=== PATIENT | female | born 1990 | race Caucasian/White ===

== ENCOUNTER 2017-11-29 10:49 | Emergency (ER) | payer OTHER ==
[~2017-11-29 10:49] MED LIST: PREN1CAP20 PO
[2017-11-29 11:15] VITALS: PULSE 132
[2017-11-29] MEDS ORDERED: ONDANSETRON HCL 4 MG/2 ML VIAL IV PUSH ONE (12:15)
[2017-11-29] MEDS ORDERED: LACTATED RINGER'S 1000 ML INJ 1,000 ML IV ONE (12:15)
--- NOTE | 2017-11-29 12:33 | PD ---
HPI Chief Complaint Nausea and Vomiting Date Seen: Nov 29, 2017 Travel History International Travel<30 Days: No Contact w/Intl Traveler<30Days: No History of Present Illness HPI Ms. Malone is a 27 y/o at 21/5 weeks gestation presenting with nausea, vomiting and diarrhea. She reports that since 0500 this morning she has had numerous episodes of nonbloody vomiting. With the vomiting she had had intractable nausea with one episode of nonbloody diarrhea. She has been unable to keep anything down since that time with either solids or liquids. She believes that this could be related to the foods she had last night as she presents with her Mother who has had the same symptoms with less severity. During the she was diagnosed with gestational diabetes at 28 weeks which she controls with her diet. She does not remember her most recent BG, but reports they have been "alright." Otherwise the has been uncomplicated. She endorses good movement with no loss of fluid, dysuria, vaginal discharge, or bleeding. Otherwise she has no complaints and denies any fevers, chills, SOB, chest pain, NVD, ABD pain, or calf tenderness. Weeks Gestation: 31 Para: 0 : 1 History Past Medical History Narrative Medical None reported Obstetric History Obstetric History -Gestational diabetes diagnosed at 28 weeks Past Surgical History Narrative Surgical Tonsillectomy Family History Narrative Family History None reported Social History Narrative Social History No tobacco, alcohol, or illicit drug use reported per patient Allergies-Medications (Allergen,Severity, Reaction): Coded Allergies: No Known Allergies (Verified Adverse Reaction, Unknown, 10/05/17) Home Meds Active Scripts W/O Vit A W/ Fe Carbo (Prenate Mini 18-0.6-0.4-350 mg) 18 Mg Iron-1 Mg- 350 Mg Cap, 1 TAB PO DAILY, #90 BOTTLE 10 Refills Prov:Chandni Marroquin 07/15/17 Review of Systems Except as stated in HPI: all other systems reviewed are Neg Physical Exam Narrative GENERAL: Well-nourished, well-developed patient. SKIN: Warm and dry. HEAD: Normocephalic and atraumatic. EYES: No scleral icterus. No injection or drainage. ENT: No nasal drainage noted. Mucous membranes pink. Airway patent. NECK: Supple, trachea midline. No JVD. CARDIOVASCULAR: Regular rate and rhythm without murmurs, gallops, or rubs. RESPIRATORY: Breath sounds equal bilaterally. No accessory muscle use. ABDOMEN/GI: Abdomen soft, non-tender, bowel sounds present, no rebound, no guarding Gravid to 31 weeks size FHT's: Category: 1 Baseline: 120s Reactive: Positive Variability: Moderate Decels: None EXTREMITIES: No cyanosis or edema. BACK: Nontender without obvious deformity. No CVA tenderness. NEUROLOGICAL: Awake and alert. Motor and sensory grossly within normal limits. Five out of 5 muscle strength in all muscle groups. Normal speech. Data Data Vital Signs Reviewed: Yes [facility] Medical Record Reviewed: Yes Plan Ms. Malone is a 27 y/o at 31/5 weeks gestation presenting with nausea, vomiting, and diarrhea. 1. 31 weeks gestation -Continue routine antepartum care -Encourage oral hydration -Encourage PNV -FHT category 1, reassuring 2. NVD -UA shows specific gravity >1.03, 80 ketones with 30 of protein, otherwise negative; UA ordered -1L LR ordered -Zofran 4mg IV ordered -Plan to have oral challenge after fluid and medication administration for possible discharge SDW: Dr. Condon Update: -Patient states she feels "much better" after IV fluids and Zofran medication -Patient to be discharged home with Zofran as needed for NVD -Patient to follow up with OBGYN within the next 3-5 days for further evaluation Diagnosis Diagnosis: Primary Impression: 31 weeks gestation of Additional Impression: Vomiting affecting , antepartum Disposition: 01 DISCHARGE HOME Condition: Stable Patient Instructions: General Instructions, Abdominal Pain in (ED), Having Your Baby: The Labor Process (GEN), Nausea and Vomiting in (ED) , Gestational Diabetes (ED) Antony Chavez MD R2 Nov 29, 2017 12:33
[2017-11-29 13:09] LABS: BACTERIA, URINE MOD /hpf; BILIRUBIN, URINE NEG (NEG); BLOOD, URINE NEG (NEG); GLUCOSE,URINE NEG (NEG); KETONE, URINE 80 mg/dL (NEG); MUCUS URINE FEW /lpf (OCC); NITRITE,URINE NEG (NEG); PH, URINE 5.5 (5.0-8.5); SQUAMOUS EPITHELIAL CELL URINE 1 /hpf (0-5); URINE COLOR YELLOW (YELLW/STRAW); URINE LEUKOCYTE ESTERASE TRACE (NEG)
[2017-11-29] MEDS ORDERED: ZOFR4TAB3 SL (13:59)
== END 2017-11-29 14:15 | disposition home or self-care (01) ==
LOC: HOBED 10:49
DX: O21.9 Vomiting of pregnancy, unspecified (principal); R19.7 Diarrhea, unspecified; O24.419 Gestational diabetes mellitus in pregnancy, unspecified control; R82.90 Unspecified abnormal findings in urine; Z3A.31 31 weeks gestation of pregnancy
CPT/HCPCS: 81001; 87086; 96374; 99283; J2405; J7120

== ENCOUNTER 2018-01-24 08:21 | Inpatient (IN) | payer OTHER ==
[2018-01-24] VITALS (115 sets, daily range): BP systolic 112–152; BP diastolic 70–105; PULSE 72–102; RESP 16–20; TEMP 97.9–98.5
[~2018-01-24 08:21] MED LIST changes: +ZOFR4TAB3 SL
--- NOTE | 2018-01-24 08:55 | PD ---
HPI Travel History International Travel<30 Days: No Contact w/Intl Traveler<30Days: No History of Present Illness HPI 27-year-old female at 39/5 weeks with gestational diabetes controlled with diet presents to the OB ED for contractions. 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 She reports that she had some false contractions last week and was 2 cm dilated at the OB office. She started having contractions around 5 AM this morning. She reports that they have been consistent in 5-7 minutes apart. She endorses good movement. She denies leakage of fluid, vaginal bleeding, dysuria, chest pain, shortness of breath, and fevers. She recently had an ultrasound last Wednesday, baby was weighing 7 lbs. 2 oz. Blood pressure today 144 /90s. Patient reports hx of high blood pressure in OB office, but resolved with rechecks. No hx of protein in urine based on records. History Past Medical History Narrative Medical Gestational diabetes controlled with diet Medical History: Denies Significant Hx Past Surgical History Narrative Surgical Tonsillectomy Family History Narrative Family History Hypertension Hyperlipidemia Social History Alcohol Use: No Tobacco Use: No Substance Abuse: No Allergies-Medications (Allergen,Severity, Reaction): Coded Allergies: No Known Allergies (Verified Adverse Reaction, Unknown, 10/05/17) Home Meds Active Scripts Ondansetron Odt (Zofran Odt) 4 Mg Tab, 4 MG SL Q8HR Y for Nausea/Vomiting, #20 TAB 0 Refills Prov:Antony Chavez MD R2 11/29/17 W/O Vit A W/ Fe Carbo (Prenate Mini 18-0.6-0.4-350 mg) 18 Mg Iron-1 Mg- 350 Mg Cap, 1 TAB PO DAILY, #90 BOTTLE 10 Refills Prov:Chandni Marroquin 07/15/17 Review of Systems Except as stated in HPI: all other systems reviewed are Neg Physical Exam Narrative GENERAL: Well-nourished, well-developed patient. SKIN: Warm and dry. HEAD: Normocephalic and atraumatic. EYES: No scleral icterus. No injection or drainage. ENT: No nasal drainage noted. Mucous membranes pink. Airway patent. NECK: Supple, trachea midline. No JVD. CARDIOVASCULAR: Regular rate and rhythm without murmurs, gallops, or rubs. RESPIRATORY: Breath sounds equal bilaterally. No accessory muscle use. BREASTS: Bilateral exam showed no masses , no retractions, no nipple discharge. ABDOMEN/GI: Abdomen soft, non-tender, bowel sounds present, no rebound, no guarding GENITOURINARY: Cervix: Posterior Dilatation: 1 Effacement: [-] Station: -3 Presentation: [-] Membranes: Intact Uterine Contractions: irregular FHT's: Category: 1 Baseline: 130s Reactive: yes Variability: moderate Decels: none EXTREMITIES: No cyanosis or edema. BACK: Nontender without obvious deformity. NEUROLOGICAL: Awake and alert. Motor and sensory grossly within normal limits. Five out of 5 muscle strength in all muscle groups. Normal speech. Data Data Vital Signs Reviewed: Yes MDM Plan 27-year-old at 39/5 weeks with gestational Diabetes controlled with diet presents to the OB ED with contractions. Intrauterine , category 1, reassuring Cervix: 1 cm, 20-30%, posterior, -3 BP 140s/90s Urine dipstick positive for protein (100mg/dL) Protein/creatinine ratio pending dw Dr. Conrad Diagnosis Diagnosis: Primary Impression: Additional Impression: Irregular contractions Condition: Stable Alysia Ortiz MD R1 Jan 24, 2018 08:55
[2018-01-24 10:02] LABS: BACTERIA, URINE MANY /hpf; BILIRUBIN, URINE NEG (NEG); BLOOD, URINE NEG (NEG); GLUCOSE,URINE NEG (NEG); KETONE, URINE NEG (NEG); MUCUS URINE FEW /lpf (OCC); NITRITE,URINE NEG (NEG); PH, URINE 6.5 (5.0-8.5); SQUAMOUS EPITHELIAL CELL URINE 3 /hpf (0-5); URINE COLOR LIGHT-YELLOW (YELLW/STRAW); URINE LEUKOCYTE ESTERASE NEG (NEG)
[2018-01-24] MEDS ORDERED: LACTATED RINGER'S 1000 ML INJ 1,000 ML IV PRN (10:21)
--- NOTE | 2018-01-24 10:28 | HHI.HP ---
History & Physical H&P OB ED Note (Detail) Patient Name: Irineo Orona Unit Number: [id number] Date of : 1990 Patient Status: Registered Emergency Room Attending Doctor: Vic Conrad MD HPI HPI Travel History International Travel<30 Days: No Contact w/Intl Traveler<30Days: No History of Present Illness HPI 27-year-old female at 39/5 weeks with gestational diabetes controlled with diet presents to the OB ED for contractions. 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 She reports that she had some false contractions last week and was 2 cm dilated at the OB office. She started having contractions around 5 AM this morning. She reports that they have been consistent in 5-7 minutes apart. She endorses good movement. She denies leakage of fluid, vaginal bleeding, dysuria, chest pain, shortness of breath, and fevers. She recently had an ultrasound last Wednesday, baby was weighing 7 lbs. 2 oz. Blood pressure today 144 /90s. Patient reports hx of high blood pressure in OB office, but resolved with rechecks. No hx of protein in urine based on records. History (Limited) History Past Medical History Narrative Medical Gestational diabetes controlled with diet Medical History: Denies Significant Hx Past Surgical History Narrative Surgical Tonsillectomy Family History Narrative Family History Hypertension Hyperlipidemia Social History Alcohol Use: No Tobacco Use: No Substance Abuse: No Allergies-Medications Allergies-Medications (Allergen,Severity, Reaction): Coded Allergies: No Known Allergies (Verified Adverse Reaction, Unknown, 10/05/17) Home Meds Active Scripts Ondansetron Odt (Zofran Odt) 4 Mg Tab, 4 MG SL Q8HR Y for Nausea/Vomiting, #20 TAB 0 Refills Prov:Antony Chavez MD R2 11/29/17 W/O Vit A W/ Fe Carbo (Prenate Mini 18-0.6-0.4-350 mg) 18 Mg Iron-1 Mg- 350 Mg Cap, 1 TAB PO DAILY, #90 BOTTLE 10 Refills Prov:Chandni Marroquin 07/15/17 ROS Review of Systems Except as stated in HPI: all other systems reviewed are Neg Physical Exam Physical Exam Narrative GENERAL: Well-nourished, well-developed patient. SKIN: Warm and dry. HEAD: Normocephalic and atraumatic. EYES: No scleral icterus. No injection or drainage. ENT: No nasal drainage noted. Mucous membranes pink. Airway patent. NECK: Supple, trachea midline. No JVD. CARDIOVASCULAR: Regular rate and rhythm without murmurs, gallops, or rubs. RESPIRATORY: Breath sounds equal bilaterally. No accessory muscle use. BREASTS: Bilateral exam showed no masses , no retractions, no nipple discharge. ABDOMEN/GI: Abdomen soft, non-tender, bowel sounds present, no rebound, no guarding GENITOURINARY: Cervix: Posterior Dilatation: 1 Effacement: 20-30% Station: -3 Presentation: [-] Membranes: Intact Uterine Contractions: every 3 minutes FHT's: Category: 1 Baseline: 130s Reactive: yes Variability: moderate Decels: none EXTREMITIES: No cyanosis or edema. BACK: Nontender without obvious deformity. NEUROLOGICAL: Awake and alert. Motor and sensory grossly within normal limits. Five out of 5 muscle strength in all muscle groups. Normal speech. Data Data Data Vital Signs Reviewed: Yes MDM MDM Plan 27-year-old at 39/5 weeks with gestational Diabetes controlled with diet presents to the OB ED with contractions. Admit to L & D. 1. Intrauterine , category 1, reassuring Cervix: 1 cm, 20-30%, posterior, -3 Contractions: every 3 minutes OB US- vertex presentation confirmed 2. BP 140s/90s No documented elevated blood pressures in records Urine dipstick positive for protein (100mg/dL) Protein/creatinine ratio elevated at 1.23 3. GBS negative vanna Green Diagnosis Diagnosis: Primary Impression: Additional Impression: Irregular contractions Condition: Stable Alysia Ortiz MD R1 Jan 24, 2018 08:55 Alysia Ortiz MD R1 Jan 24, 2018 10:28
[2018-01-24] MEDS ORDERED: SODIUM CHLORID 0.9% 500 ML INJ 500 ML IV PRN (10:30)
[2018-01-24] MEDS ORDERED: OXYTOCIN 30 UNITS-500ML PREMIX 500 ML IV ONE (10:30)
[2018-01-24] MEDS ORDERED: LIDOCAINE HCL 1% 50 ML VIAL INFIL PRN (10:30)
[2018-01-24] MEDS ORDERED: LIDOCAINE HCL 1% 50 ML VIAL I-DERMAL PRN (10:30)
[2018-01-24] MEDS ORDERED: MINERAL OIL 10 ML VIAL TOPICAL PRN (10:30)
[2018-01-24] MEDS ORDERED: ONDANSETRON HCL 4 MG/2 ML VIAL IV PUSH PRN (10:30)
[2018-01-24] MEDS ORDERED: CITRIC ACID-SODIUM CITRATE LIQ 30 ML UDC PO SCH (10:30)
[2018-01-24] MEDS ORDERED: SODIUM CHLOR 0.9% 1000 ML INJ 1,000 ML IV PRN (10:41)
[2018-01-24] MEDS ORDERED: hydrALAZINE HCL 20 MG/ML VIAL IV PUSH PRN (10:45)
[2018-01-24] MEDS: LACTATED RINGER'S 1000 ML INJ 1,000 ML IV SCH ×2 (11:20→18:40)
[2018-01-24 12:11] LABS: ALBUMIN 2.9 GM/DL (3.4-5.0); AST (GOT) 19 U/L (15-37); BICARBONATE 21.2 MEQ/L (21.0-32.0); BLOOD UREA NITROGEN 11 MG/DL (7-18); CALCIUM 9.5 MG/DL (8.5-10.1); CHLORIDE 105 MEQ/L (98-107); CREATININE 0.76 MG/DL (0.50-1.00); GLOMERULAR FILTRATION RATE 92 ML/MIN (>89); GLUCOSE,RANDOM 86 MG/DL (74-106); SODIUM (NA) 138 MEQ/L (136-145)
[2018-01-24 12:15] LABS: ALKALINE PHOSPHATASE 253 U/L (45-117); ALT (GPT) 28 U/L (10-53); TOTAL BILIRUBIN ADULT 0.2 MG/DL (0.2-1.0); TOTAL PROTEIN 7.4 GM/DL (6.4-8.2)
[2018-01-24] MEDS ORDERED: OXYTOCIN 30 UNITS-500ML PREMIX 500 ML IV PRN (14:00)
[2018-01-24 16:39] LABS: BASOPHIL % 0.3 % (0.0-2.0); EOSINOPHIL % 0.3 % (0.0-4.0); HEMATOCRIT 34.7 % (35.0-46.0); HEMOGLOBIN 11.5 GM/DL (11.6-15.3); LYMPH % 13.4 % (9.0-44.0); LYMPHOCYTE # 1.3 TH/MM3 (1.0-4.8); MEAN CELL VOLUME 78.9 FL (80.0-100.0); MEAN CORPUSCULAR HEMOGLOBIN 26.2 PG (27.0-34.0); MEAN CORPUSCULAR HGB CONC 33.2 % (32.0-36.0); MEAN PLATELET VOLUME 9.6 FL (7.0-11.0); MONO % 4.7 % (0.0-8.0); MONOCYTE # 0.5 TH/MM3 (0-0.9); NEUT % 81.3 % (16.0-70.0); PLATELET COUNT 234 TH/MM3 (150-450); RED BLOOD COUNT 4.39 MIL/MM3 (4.00-5.30); RED CELL DISTRIBUTION WIDTH 17.8 % (11.6-17.2); WHITE BLOOD COUNT 9.8 TH/MM3 (4.0-11.0)
[2018-01-25] VITALS (132 sets, daily range): BP systolic 95–158; BP diastolic 67–123; PULSE 63–191; RESP 16–20; TEMP 97.9–99; O2SAT 98–100
[2018-01-25] MEDS ORDERED: fentaNYL 2MCG-BUPIV 0.125% INJ 100 ML ONE (00:20)
[2018-01-25] MEDS ORDERED: LIDOCAINE 2%/EPINEPHrine PF 1:200,000 20ML SDV ONE (00:26)
[2018-01-25] MEDS ORDERED: LIDOCAINE HCL 1% PF 5 ML AMPULE ONE (00:26)
[2018-01-25] MEDS ORDERED: fentaNYL 2MCG-BUPIV 0.125% 100 ML EPIDURAL PRN (00:30)
[2018-01-25] MEDS ORDERED: DO NOT ADMINISTER ANTICOAGULANTS PRN (00:30)
[2018-01-25] MEDS ORDERED: NO SYSTEM NARCOTICS PRN (00:30)
[2018-01-25] MEDS ORDERED: ePHEDrine/NS 25 MG/5 ML SYRINGE IV PUSH PRN (01:00)
[2018-01-25] MEDS: LACTATED RINGER'S 1000 ML INJ 1,000 ML IV SCH (05:11)
--- NOTE | 2018-01-25 08:27 | PD.LABORPN ---
Subjective Subjective Patient doing well this AM. No complaints. Objective Vital Signs Vital Signs Date Time Temp Pulse Resp B/P (MAP) Pulse Ox O2 Delivery O2 Flow Rate FiO2 01/25/18 08:10 93 01/25/18 08:05 104 01/25/18 08:00 98 01/25/18 07:40 103 01/25/18 07:35 112 01/25/18 07:31 162 158/123 (135) 01/25/18 07:30 105 01/25/18 07:15 20 01/25/18 07:10 114 01/25/18 07:05 114 01/25/18 07:00 116 01/25/18 06:40 109 01/25/18 06:35 111 01/25/18 06:30 143/87 (105) 01/25/18 06:30 106 01/25/18 06:30 100 01/25/18 06:10 100 01/25/18 06:10 101 01/25/18 06:05 96 01/25/18 06:05 95 01/25/18 06:01 100 01/25/18 06:01 137/87 (104) 01/25/18 06:00 105 01/25/18 05:45 98.4 16 01/25/18 05:40 100 01/25/18 05:40 99 01/25/18 05:35 105 01/25/18 05:35 108 01/25/18 05:30 97 139/84 (102) 01/25/18 05:30 100 01/25/18 05:30 101 01/25/18 05:25 98 01/25/18 05:25 98 01/25/18 05:20 99 01/25/18 05:20 100 01/25/18 05:15 99 01/25/18 05:15 99 01/25/18 05:14 102 134/80 (98) 01/25/18 05:10 103 01/25/18 05:05 104 01/25/18 05:00 136/82 (100) 01/25/18 05:00 93 01/25/18 05:00 88 01/25/18 04:55 91 01/25/18 04:55 91 01/25/18 04:50 90 01/25/18 04:50 91 01/25/18 04:45 97 01/25/18 04:45 92 01/25/18 04:40 88 01/25/18 04:35 86 01/25/18 04:31 86 130/82 (98) 01/25/18 04:30 86 01/25/18 04:25 98 01/25/18 04:20 90 01/25/18 04:15 86 01/25/18 04:11 98.2 01/25/18 04:10 92 01/25/18 04:05 86 01/25/18 04:01 75 140/86 (104) 01/25/18 04:00 71 01/25/18 03:55 70 01/25/18 03:50 76 01/25/18 03:45 74 01/25/18 03:40 72 01/25/18 03:35 74 01/25/18 03:35 98 01/25/18 03:31 74 127/87 (100) 01/25/18 03:30 74 01/25/18 03:30 76 01/25/18 03:25 98 01/25/18 03:25 68 01/25/18 03:20 72 01/25/18 03:20 98 01/25/18 03:15 72 01/25/18 03:15 98 01/25/18 03:10 75 98 01/25/18 03:10 76 01/25/18 03:05 75 01/25/18 03:05 74 98 01/25/18 03:01 75 123/81 (95) 01/25/18 03:00 71 98 01/25/18 03:00 72 01/25/18 02:55 77 98 01/25/18 02:55 79 01/25/18 02:50 70 01/25/18 02:50 70 98 01/25/18 02:45 70 98 01/25/18 02:45 70 01/25/18 02:40 72 01/25/18 02:40 72 98 01/25/18 02:35 66 98 01/25/18 02:35 68 01/25/18 02:31 70 129/79 (96) 01/25/18 02:30 98 01/25/18 02:30 72 01/25/18 02:30 73 01/25/18 02:25 73 01/25/18 02:25 71 98 01/25/18 02:20 68 01/25/18 02:20 67 98 01/25/18 02:15 68 01/25/18 02:15 68 98 01/25/18 02:10 67 01/25/18 02:10 67 98 01/25/18 02:05 76 99 01/25/18 02:05 76 01/25/18 02:01 76 121/82 (95) 01/25/18 02:00 69 01/25/18 02:00 72 99 01/25/18 01:55 76 99 01/25/18 01:55 74 01/25/18 01:50 74 01/25/18 01:50 72 01/25/18 01:50 99 01/25/18 01:45 74 01/25/18 01:45 99 01/25/18 01:45 72 01/25/18 01:40 72 01/25/18 01:40 71 01/25/18 01:40 100 01/25/18 01:35 68 01/25/18 01:35 99 01/25/18 01:31 72 126/81 (96) 01/25/18 01:30 99 01/25/18 01:30 67 01/25/18 01:26 65 127/82 (97) 01/25/18 01:25 99 01/25/18 01:25 68 01/25/18 01:21 160 126/80 (95) 01/25/18 01:20 69 01/25/18 01:20 100 01/25/18 01:16 164 117/71 (86) 01/25/18 01:15 99 01/25/18 01:15 66 01/25/18 01:11 70 119/79 (92) 01/25/18 01:10 69 01/25/18 01:10 100 01/25/18 01:06 64 128/76 (93) 01/25/18 01:05 63 01/25/18 01:05 64 01/25/18 01:05 100 01/25/18 01:01 68 126/77 (93) 01/25/18 01:00 70 01/25/18 01:00 100 01/25/18 01:00 73 01/25/18 00:56 67 123/83 (96) 01/25/18 00:55 66 01/25/18 00:55 100 01/25/18 00:55 65 01/25/18 00:51 70 124/77 (93) 01/25/18 00:50 100 01/25/18 00:50 70 01/25/18 00:46 73 126/74 (91) 01/25/18 00:45 76 01/25/18 00:45 100 01/25/18 00:40 100 01/25/18 00:40 81 126/67 (86) 01/25/18 00:40 75 01/25/18 00:39 115 95/78 (84) 01/25/18 00:36 83 137/75 (95) 01/25/18 00:35 91 01/25/18 00:33 99 141/99 (113) 01/25/18 00:30 84 147/100 (116) 01/25/18 00:30 90 Objective Pelvic Exam: Cervix: midpostion Dilatation: o Effacement: 100 Station: -1 Presentation: vertex Membranes: SROM Uterine Contractions: every 3 min FHT's: Category: 1 Baseline: 130s Reactive: yes Variability: moderate Decels: none Assessment/Plan Assessment and Plan 27-year-old at 39/5 weeks with gestational Diabetes controlled with diet in labor. 1. Intrauterine , category 1, reassuring Cervix: 9cm, 100%, -1, midposition Contractions: every 3 minutes OB US- vertex presentation confirmed 2. BP 148/90s on admission No documented elevated blood pressures in records Urine dipstick positive for protein (100mg/dL) Protein/creatinine ratio elevated at 1.23 3. GBS negative Continue routine OB care. Alysia Kraft Dr., MD R1 January 25, 2018 08:27
--- NOTE | 2018-01-25 12:12 | PD.OB.DELI ---
Anesthesia: None, Epidural Episiotomy: None Vaginal Delivery: Normal, Spontaneous Presentation: Occiput anterior Nuchal Cord: None Delayed cord clamping (45 sec): Yes Infant: Female Delivery date: January 25, 2018 Delivery time: 11:37 One Minute : 7 Five Minute : 9 Weight: 3025g Placenta: Spontaneous delivery Laceration: 3 deg (Partial 3rd degree tear) Repair: Chromic running Additional Information Partial 3rd degree tear, repaired by Dr. Che Delivery by Dr. Ortiz Supervised by Dr. Condon (Alysia Ortiz MD R1) Collaborating MD Comments Partial third with small tear through capsule only, none through sphincter muscle. Capsule brought together with interrupted sutures of 2-0 chromic then second degree repaired by DR Che with direct supervision. (Hortensia Condon MD) Alysia Ortiz MD R1 January 25, 2018 12:12 Hortensia Condon MD January 25, 2018 23:17
[2018-01-25] MEDS ORDERED: DOCUSATE SODIUM 50 MG/SENNA 8.6 MG TAB PO PRN (12:15)
[2018-01-25] MEDS ORDERED: BENZOCAINE 20% TOPICAL SPRAY 60 ML CAN TOPICAL PRN (12:15)
[2018-01-25] MEDS ORDERED: ALUMINUM/MAGNESIUM/SIMETH 30 ML CUP PO PRN (12:15)
[2018-01-25] MEDS ORDERED: ONDANSETRON ODT 4 MG TAB PO PRN (12:15)
[2018-01-25] MEDS ORDERED: OXYTOCIN 30 UNITS-500ML PREMIX 500 ML IV SCH (12:15)
[2018-01-25] MEDS ORDERED: WITCH HAZEL 50%/GLYCERIN 12.5% 40 PAD JAR TOPICAL PRN (12:15)
[2018-01-25] MEDS ORDERED: SODIUM CHLORIDE 0.9% FLUSH 10 ML FLUSH IV FLUSH PRN (12:15)
[2018-01-25] MEDS ORDERED: ZOLPIDEM TARTRATE 5 MG TAB PO PRN (12:15)
[2018-01-25] MEDS: IBUPROFEN 800 MG TAB PO PRN (13:54)
[2018-01-25] MEDS ORDERED: DIPHTH/TETANUS/ACEL PERTUSSIS (BOOSTER) 0.5 ML VIAL/PFS IM ONE (16:00)
[2018-01-25] MEDS ORDERED: MEASLES, MUMPS, RUBELLA VACCINE 0.5 ML VIAL SQ ONE (16:00)
[2018-01-25] MEDS: ACETAMINOPHEN 325 MG TAB PO PRN (20:48)
[2018-01-25] MEDS: DOCUSATE SODIUM 50 MG/SENNA 8.6 MG TAB PO SCH (20:48)
[2018-01-25] MEDS: SODIUM CHLORIDE 0.9% FLUSH 10 ML FLUSH IV FLUSH SCH (21:00)
[2018-01-26] MEDS: IBUPROFEN 800 MG TAB PO PRN ×2 (04:20→14:09)
[2018-01-26] MEDS: ACETAMINOPHEN 325 MG TAB PO PRN ×2 (04:20→11:38)
[2018-01-26 07:50] VITALS: BP 112/65; PULSE 75; RESP 18; TEMP 97.8
--- NOTE | 2018-01-26 08:04 | HHI.OB ---
Subjective Post Day: 1 Remarks Patient seen and examined this morning. AFVSS overnight. day #1. Patient states her pain is well controlled. Decreased lochia. Denies dysuria. No breast tenderness. She is feeding the baby via breast without reported issues. Appetite good. No nausea or vomiting. Ambulating well. Denies fevers, calf pain, shortness of breath, or cough. She otherwise has no other complaints or concerns this morning. Objective Vitals/I&O Vital Signs Date Time Temp Pulse Resp B/P (MAP) Pulse Ox O2 Delivery O2 Flow Rate FiO2 01/25/18 20:53 97.9 67 18 125/79 (94) 01/25/18 13:45 117 121/69 (86) 01/25/18 13:30 118 120/70 (87) 01/25/18 13:15 121 120/73 (89) 01/25/18 13:03 18 01/25/18 13:00 127 127/77 (94) 01/25/18 12:48 20 01/25/18 12:45 119 121/77 (92) 01/25/18 12:20 99.0 01/25/18 12:16 111 121/73 (89) 01/25/18 10:40 103 01/25/18 10:35 106 01/25/18 10:30 110 130/98 (109) 01/25/18 10:30 108 01/25/18 10:30 111 01/25/18 10:00 97 01/25/18 10:00 102 126/95 (105) 01/25/18 09:40 102 01/25/18 09:35 99 01/25/18 09:30 110 01/25/18 09:30 101 01/25/18 09:30 146/96 (113) 01/25/18 09:00 98.8 01/25/18 09:00 18 01/25/18 08:56 102 138/72 (94) 01/25/18 08:55 99 01/25/18 08:55 97 01/25/18 08:50 95 01/25/18 08:50 94 01/25/18 08:45 95 01/25/18 08:45 93 01/25/18 08:10 93 01/25/18 08:05 104 Objective Remarks GENERAL: Well-nourished, well-developed patient. CARDIOVASCULAR: Regular rate and rhythm without murmurs, gallops, or rubs. RESPIRATORY: Breath sounds equal bilaterally. No accessory muscle use. ABDOMEN/GI: Abdomen soft, non-tender. Fundus: Firm, non-tender at umbilicus. GENITOURINARY: Light to moderate bleeding. EXTREMITIES: No cyanosis or edema, non-tender, without signs of DVT. Medications and IVs Current Medications Medications (Trade) Dose Ordered Sig/Briseyda Route Start Time Stop Time Status Last Admin Oxytocin 500 ml @ 2 mls/hr TITRATE PRN IV 01/24/18 14:00 01/24/18 14:43 Fentanyl/ Bupivacaine HCl 100 ml @ 12 mls/hr TITRATE PRN EPIDURAL 01/25/18 00:30 (NS Flush) 2 ml BID IV FLUSH 01/25/18 21:00 (NS Flush) 2 ml UNSCH PRN IV FLUSH 01/25/18 12:15 (Tylenol) 650 mg Q4H PRN PO 01/25/18 12:15 01/26/18 04:20 (Motrin) 800 mg Q8H PRN PO 01/25/18 12:15 01/26/18 04:20 (Americaine 20% Top Spr) 1 spray Q4H PRN TOPICAL 01/25/18 12:15 01/25/18 20:52 (Tucks Pads) 1 applic QID PRN TOPICAL 01/25/18 12:15 01/25/18 20:52 (Ambien) 5 mg HS PRN PO 01/25/18 12:15 (Mag-Al Plus Susp Liq) 15 ml Q8H PRN PO 01/25/18 12:15 (Zofran Odt) 4 mg Q6H PRN PO 01/25/18 12:15 (Robyn-Colace) 2 tab Q12H PO 01/25/18 18:00 01/25/18 20:48 Assessment/Plan Problem List: (1) care following vaginal delivery ICD Codes: Z39.2 - Encounter for routine follow-up Assessment and Plan 27 year old now PPD#1. 1. Care - AFVSS - Encouraged OOB, as tolerated - Motrin prn pain - Advised pelvic rest x 6 weeks - - Contraception: Discussed with patient this AM, patient will f/u with her OB provider for contraception - Will f/u with OB provider in 6 weeks [facility] OB Hospitalist Shaji Che MD R2 January 26, 2018 08:04
[2018-01-26] MEDS: DOCUSATE SODIUM 50 MG/SENNA 8.6 MG TAB PO SCH (08:18)
[2018-01-26] MEDS: SODIUM CHLORIDE 0.9% FLUSH 10 ML FLUSH IV FLUSH SCH (08:18)
[2018-01-26] MEDS ORDERED: IBUP1TAB7 PO (18:38)
[2018-01-26] MEDS ORDERED: PERI PO (18:39)
--- NOTE | 2018-01-26 18:39 | HHI.DCPOC ---
Discharge Care Plan Diagnosis: (1) care following vaginal delivery Report Symptoms to Your Doctor -Temperature above 100.5 degrees -Redness, of incision or excessive or foul smelling drainage -Unusual pain or calf pain -Increased vaginal bleeding -Painful or difficulty urinating -Feelings of extreme sadness or anxiety after 2 weeks Goals to Promote Your Health * To prevent worsening of your condition and complications * To maintain your health at the optimal level Directions to Meet Your Goals Take your medications as prescribed Follow your dietary instruction Follow activity as directed Ensure plenty of rest for recovery Drink fluids for hydration Keep your appointments as scheduled Take your immunizations and boosters as scheduled If your symptoms worsen call your PCP, if no PCP go to Urgent Care Center or Emergency Room Smoking is Dangerous to Your Health. Avoid second hand smoke Call the 24-hour crisis hotline for domestic abuse at Alysia Ortiz MD R1 January 26, 2018 18:39
== END 2018-01-26 19:20 | disposition home or self-care (01) | DRG 775 ==
LOC: HOBED 08:21 → H2EA 10:46 → H1EA 01-25 14:39
PROVIDERS: ADMIT Obstetrics & Gynecology Maternal & Fetal Medicine; ATTEND Obstetrics & Gynecology Maternal & Fetal Medicine
PROC: 10E0XZZ Delivery of Products of Conception, External Approach (ICD-10-PCS; principal; 2018-01-25)
PROC: 0DQR0ZZ Repair Anal Sphincter, Open Approach (ICD-10-PCS; 2018-01-25)
DX: O70.20 Third degree perineal laceration during delivery, unspecified (principal); O24.429 Gestational diabetes mellitus in childbirth, unspecified control; Z37.0 Single live birth; Z3A.39 39 weeks gestation of pregnancy; Z23 Encounter for immunization
CPT/HCPCS: 59025; 80053; 80307; 81001; 82570; 84156; 85025; 86900; 86901; 87086; 90715; G0481; J2405; J2590; J3010; J7120